=== PATIENT | male | born 1960 | race Two or more races ===

== ENCOUNTER 2019-04-29 00:20 | Inpatient (IN) | payer MEDICAID, OTHER ==
[~2019-04-29] VITALS: Ht 193 cm; Wt 108.0 kg
[2019-04-29 01:39] LABS: Basophils # (auto) 0 uL; Basophils % (auto) 0.5 % (0.0-2.0); Eosinophils # (auto) 0.1 uL; Eosinophils % (auto) 0.7 % (0.0-7.0); Hematocrit 44.4 % (41.0-53.0); Hemoglobin 15.3 g/dL (13.5-17.5); Lymphocytes % (auto) 24.1 % (10.0-50.0); Mean Corpuscular Hemoglobin 32.2 pg (28.0-32.0); Mean Corpuscular Hgb Conc. 34.5 g/dL (32.0-36.0); Mean Corpuscular Volume 93.3 fL (80.0-100.0); Monocytes # (auto) 0.5 uL; Monocytes % (auto) 5.7 % (0.0-12.0); Neutrophils # (auto) 5.7 uL; Platelet Count (auto) 191 10^3/uL (140-450); Red Blood Cells 4.76 10^6/uL (4.5-5.90); Red Cell Distribution Width 14.2 % (11.8-14.3); White Blood Cell 8.3 10^3/uL (4.4-10.8)
[2019-04-29 01:56] LABS: Potassium 3.8 mmol/L (3.5-5.1)
[2019-04-29 02:01] LABS: Albumin 4.1 g/dL (3.4-5.0); BUN/Creatinine Ratio 14.5; Calcium 8.8 mg/dL (8.5-10.1)
[2019-04-29 02:05] LABS: Bilirubin, Total 0.6 mg/dL (0.2-1.0); Total Protein 7.6 g/dL (6.4-8.2)
[2019-04-29] MEDS ORDERED: SODIUM CHLORIDE 0.9% 500 ML IV ONE (02:19)
[2019-04-29] MEDS ORDERED: MORPHINE SULF INJ 2 MG/ML SYRINGE 1ML IV ONE (02:30)
[2019-04-29] MEDS ORDERED: ASPirin 325 MG TAB PO ONE (02:30)
[2019-04-29] MEDS ORDERED: MORPHINE SULF INJ 2 MG/ML SYRINGE 1ML IV PRN ×2 (04:45→13:30)
[2019-04-29] MEDS ORDERED: NITROGLYCERIN 0.4 MG SL TAB SL PRN ×2 (04:45→13:30)
[2019-04-29] MEDS ORDERED: ONDANSETRON HCL 4 MG/2 ML VIAL IV PRN (04:45)
[2019-04-29] MEDS ORDERED: TEMAZEPAM 15 MG CAP PO PRN (04:45)
[2019-04-29] MEDS ORDERED: ATORVASTATIN 20 MG TAB PO ONE (05:00)
[2019-04-29] MEDS ORDERED: ENOXAPARIN SOD 100 MG/1 ML SYRINGE SC ONE (05:00)
[2019-04-29] MEDS: SODIUM CHLORIDE 0.9% 1,000 ML IV SCH ×2 (05:18→16:40)
[2019-04-29] MEDS ORDERED: SIMV-8 PO (09:25)
[2019-04-29] MEDS ORDERED: CLOP75TA28 PO (09:25)
[2019-04-29] MEDS ORDERED: NITR0.4S29 SL (09:25)
[2019-04-29] MEDS ORDERED: ASPI81TA27 PO (09:25)
[2019-04-29] MEDS: FAMOTIDINE 20 MG TAB PO SCH ×2 (10:12→21:29)
[2019-04-29] MEDS: CLOPIDOGREL BISULFATE 75 MG TAB PO SCH (10:12)
[2019-04-29 11:21] LABS: INR 1.04 (0.9-1.15); Partial Thromboplastin Time 33.4 sec (23.64-32.05)
[2019-04-29] MEDS ORDERED: LIDOCAINE 2%HCL (LOCAL ANESTH.) INJ 20ML MDV ONE ×2 (11:36→12:10)
[2019-04-29] MEDS ORDERED: fentaNYL CITRATE 100 MCG/2 ML VL ONE (11:48)
[2019-04-29] MEDS ORDERED: ANGIOMAX 250 MG VIAL IV ONE (11:48)
[2019-04-29] MEDS ORDERED: MIDAZOLAM HCL 1MG/1ML-2 ML VIAL ONE (11:49)
[2019-04-29] MEDS ORDERED: SODIUM CHL 0.9% 50 ML ONE (11:49)
[2019-04-29] MEDS ORDERED: IOHEXOL 350 MG/ML 100ML IJ ONE ×2 (11:52→12:23)
[2019-04-29] MEDS ORDERED: EPINEPHrine HCL 1 MG/10 ML SYRG ONE (12:27)
[2019-04-29] MEDS ORDERED: ATROPINE SULFATE 1 MG/1 ML VIAL ONE (12:27)
[2019-04-29] MEDS ORDERED: CLOPIDOGREL 300 MG TAB ONE (12:44)
[2019-04-29] MEDS ORDERED: hydrALAZINE HCL 20 MG/ML VL IV PRN (13:30)
[2019-04-29] MEDS ORDERED: CLOPIDOGREL BISULFATE 75 MG TAB PO ONE (13:45)
[2019-04-29] MEDS ORDERED: OMEPRAZOLE 20MG/10ML ORAL SUSP PO SCH (13:45)
--- NOTE | 2019-04-29 14:56 | NUR ---
faxed ss order to [facility] for f/u as outpt, confirmation received
[2019-04-29] MEDS ORDERED: KETOROLAC TROMETH 30 MG/ML 1ML VIAL ONE (16:11)
[2019-04-29] MEDS ORDERED: KETOROLAC TROMETH 30 MG/ML 1ML VIAL IV ONE (16:15)
--- NOTE | 2019-04-29 16:22 | NUR ---
report to Monica LAWTON. no change in patients assessment. c/p 04/09 dr. Batres aware. Toradol given patient tolerated well. ok to bring patient to tele per dr. Batres. site to right groin benign safe guard in place. no bleeding to site RN verbally informed patient can sit up at 1700.
--- NOTE | 2019-04-29 16:39 | NUR ---
site checked with Monica LAWTON site benign no change in assessment.
--- NOTE | 2019-04-29 16:40 | NUR ---
PATIENT BROUGHT TO THE FLOOR REPORT RECEIVED. SAFEGUARD TO RIGHT GROIN, PER [employer]ELOPER NURSE, DEFLATE AT 1700. WILL CONTINUE CARE.
[2019-04-29 16:54] VITALS: BP 148/92
--- NOTE | 2019-04-29 17:00 | NUR ---
SAFEGUARD DEFLATED, DRESSING CHANGE. AREA SOFT TO PALPATION, NO BLEEDING. DRESSING CLEAN, DRY, AND INTACT. PATIENT TOLERATED WELL, NO S/S OF DISTRESS.
--- NOTE | 2019-04-29 19:00 | NUR ---
CHEST PAIN 03/10/ PAGED PATIENT STATES CHEST PAIN IS THE SAME SINCE ADMISSION. PATIENT STATES PREVIOUS MORPHINE AND TORADOL DID NOT HELP. EKG DONE AND PLACED IN CHART. MD MI PAGED.
--- NOTE | 2019-04-29 19:13 | NUR ---
Opening Shift Note Assumed care of patient, awake and alert. No S/S of distress/SOB. Pt states he is having some chest pain /10. Instructed on POC and to call for assist as needed. Pt is currently laying in bed with the rails up x2. The bed is locked in the lowest position and the call light is within reach. The dressing on the right groin is clean dry and intact. Will continue to monitor.
--- NOTE | 2019-04-29 19:27 | NUR ---
CLOSING NOTE ENDORSED CARE TO PHYSIOGNOMIST RN. RN AWARE OF PATIENT CHEST PAIN AND PAGE OUT TO MD MI. PATIENT STATES CHEST PAIN 4/10, NO OTHER S/S OF DISTRESS. ENDORSED CHEST PAIN CARE TO PHYSIOGNOMIST RN.
--- NOTE | 2019-04-29 20:00 | NUR ---
No return call from Dr Batres. paged again.
[2019-04-29 22:00] VITALS: BP 117/66
[2019-04-29] MEDS ORDERED: PNEUMOCOCCAL VACC POLYS 25 MCG/0.5 ML VIAL IM ONE (22:00)
[2019-04-29] MEDS ORDERED: ATORVASTATIN 20 MG TAB PO SCH (22:00)
--- NOTE | 2019-04-29 22:00 | NUR ---
Called Dr Baires regarding chest pain. Pt states CP now 01/10. EKG taken and placed in chart. VS- 132/72, 65, 95%, 16, 97.5F. Morphine did not relive pain. MD states to give the nitro and see if that works while continuing to page for cardiology.
--- NOTE | 2019-04-29 22:30 | NUR ---
Pt states that he no is longer feeling the chest pain and that he does not want the nitro. Told pt to let staff know if chest pain returns. Verbalized understanding. Pt currently shows no signs of any distress or pain.
[2019-04-30 05:00] VITALS: BP 118/60
[2019-04-30 06:02] LABS: Basophils # (auto) 0 uL; Basophils % (auto) 0.3 % (0.0-2.0); Eosinophils # (auto) 0 uL; Eosinophils % (auto) 0.7 % (0.0-7.0); Hematocrit 42.7 % (41.0-53.0); Hemoglobin 14.6 g/dL (13.5-17.5); Lymphocytes # (auto) 1.1 uL; Lymphocytes % (auto) 18.7 % (10.0-50.0); Mean Corpuscular Hemoglobin 31.9 pg (28.0-32.0); Mean Corpuscular Hgb Conc. 34.3 g/dL (32.0-36.0); Mean Corpuscular Volume 93.1 fL (80.0-100.0); Monocytes # (auto) 0.5 uL; Monocytes % (auto) 8.5 % (0.0-12.0); Neutrophils # (auto) 4.1 uL; Neutrophils % (auto) 71.8 % (37.0-80.0); Platelet Count (auto) 163 10^3/uL (140-450); Red Blood Cells 4.59 10^6/uL (4.5-5.90); White Blood Cell 5.8 10^3/uL (4.4-10.8)
[2019-04-30 06:18] LABS: Calcium 8.2 mg/dL (8.5-10.1); Potassium 3.5 mmol/L (3.5-5.1)
[2019-04-30 06:22] LABS: BUN/Creatinine Ratio 11.5
[2019-04-30] MEDS: SODIUM CHLORIDE 0.9% 1,000 ML IV SCH (07:00)
[2019-04-30 08:00] VITALS: BP 120/70
[2019-04-30] MEDS: FAMOTIDINE 20 MG TAB PO SCH (09:12)
[2019-04-30] MEDS: CLOPIDOGREL BISULFATE 75 MG TAB PO SCH (09:13)
[2019-04-30] MEDS ORDERED: PANTOPRAZOLE 40 MG/10 ML VIAL INJ IV SCH (10:00)
--- NOTE | 2019-04-30 10:00 | NUR ---
CARDIOLOGY FOLLOW UP PATIENT STATES HE HAS APPOINTMENT WITH CARDIOLOGY THROUGH HIS PRIMARY MD REFERRAL. PATIENT ADVISED TO KEEP HIS CARDIOLOGY APPOINTMENT ON 05/10/19. PATIENT VERBALIZED UNDERSTANDING.
[2019-04-30 11:00] VITALS: BP 120/70
== END 2019-04-30 12:30 | disposition home or self-care (01) | DRG 247 ==
LOC: ER 00:23 → TELE 04:49 → TELE-WESTW 16:40
PROVIDERS: ADMIT Nurse Practitioner; ATTEND Internal Medicine
PROC: 027034Z Dilation of Coronary Artery, One Artery with Drug-eluting Intraluminal Device, Percutaneous Approach (ICD-10-PCS; principal; 2019-04-29)
PROC: 4A023N7 Measurement of Cardiac Sampling and Pressure, Left Heart, Percutaneous Approach (ICD-10-PCS; 2019-04-29)
PROC: B2111ZZ Fluoroscopy of Multiple Coronary Arteries using Low Osmolar Contrast (ICD-10-PCS; 2019-04-29)
PROC: B2151ZZ Fluoroscopy of Left Heart using Low Osmolar Contrast (ICD-10-PCS; 2019-04-29)
PROC: B240ZZ3 Ultrasonography of Single Coronary Artery, Intravascular (ICD-10-PCS; 2019-04-29)
DX: I21.4 Non-ST elevation (NSTEMI) myocardial infarction (principal); I10 Essential (primary) hypertension; E78.5 Hyperlipidemia, unspecified; R00.1 Bradycardia, unspecified; M54.9 Dorsalgia, unspecified; M54.2 Cervicalgia; I25.10 Atherosclerotic heart disease of native coronary artery without angina pectoris; I25.2 Old myocardial infarction; Z82.49 Family history of ischemic heart disease and other diseases of the circulatory system; Z90.49 Acquired absence of other specified parts of digestive tract
CPT/HCPCS: 36415; 71045; 80048; 80053; 82565; 83880; 84484; 85025; 85610; 85730; 93005; 94761; 96372; 96374; 96375; 96376; C1887; G0378; J0461; J1885; J2250; J2405

== ENCOUNTER → 2019-05-28 | Outpatient (CLI) | payer OTHER ==
[~2019-05-28] VITALS: Ht 193 cm; Wt 99.8 kg
[~2019-05-28] MED LIST: ASPI81TA27 PO; CLOP75TA28 PO; NITR0.4S29 SL
== END | disposition home or self-care (01) ==
LOC: Rad HDHVI 07:54
PROVIDERS: ATTEND Internal Medicine
DX: I25.2 Old myocardial infarction (principal)
CPT/HCPCS: 78452; 93017; 96374; A9500

== ENCOUNTER → 2020-06-27 | Emergency (ER) | payer OTHER ==
[~2020-06-27] VITALS: Ht 193 cm; Wt 108.0 kg
[~2020-06-27] MED LIST changes: +ASPI-543 PO; -ASPI81TA27 PO
[2020-06-27 04:06] VITALS: BP 151/88
== END | disposition home or self-care (01) ==
LOC: ER 03:34
DX: R33.9 Retention of urine, unspecified (principal); I10 Essential (primary) hypertension; I25.10 Atherosclerotic heart disease of native coronary artery without angina pectoris; I25.2 Old myocardial infarction; Z90.49 Acquired absence of other specified parts of digestive tract
CPT/HCPCS: 51702

== ENCOUNTER 2021-12-18 23:21 | Emergency (ER) | payer OTHER ==
[~2021-12-18] VITALS: Ht 193 cm; Wt 108.0 kg
[2021-12-19 01:37] LABS: Basophils # (auto) 0 10 ^3/uL (0-0.2); Basophils % (auto) 0.5 % (0.0-2.0); Eosinophils # (auto) 0.1 10 ^3/uL (0-0.8); Eosinophils % (auto) 1.5 % (0.0-7.0); Hematocrit 41.4 % (41.0-53.0); Hemoglobin 14.3 g/dL (13.5-17.5); Lymphocytes # (auto) 2.6 10 ^3/uL (0.4-5.4); Mean Corpuscular Hemoglobin 31.4 pg (28.0-32.0); Mean Corpuscular Hgb Conc. 34.5 g/dL (32.0-36.0); Mean Corpuscular Volume 91.2 fL (80.0-100.0); Monocytes # (auto) 0.5 10 ^3/uL (0-1.3); Monocytes % (auto) 7.7 % (0.0-12.0); Neutrophils # (auto) 3.3 10 ^3/uL (1.6-8.6); Neutrophils % (auto) 50.3 % (37.0-80.0); Red Blood Cells 4.54 10^6/uL (4.5-5.90); Red Cell Distribution Width 13.9 % (11.8-14.3); White Blood Cell 6.6 10^3/uL (4.4-10.8)
[2021-12-19 02:02] LABS: Urine Bacteria NONE SEEN /hpf (None Seen); Urine Blood Negative /uL (Negative); Urine Mucus FEW (None Seen); Urine Specific Gravity 1.037 (1.001-1.035); Urine WBC 2 /hpf (0 - 3)
[2021-12-19 02:31] LABS: Albumin 3.9 g/dL (3.4-5.0); Calcium 8.7 mg/dL (8.5-10.1); Potassium 3.8 mmol/L (3.5-5.1)
[2021-12-19 02:37] LABS: BUN/Creatinine Ratio 17.6; Bilirubin, Total 0.6 mg/dL (0.2-1.0); Total Protein 7.5 g/dL (6.4-8.2)
[2021-12-19 04:45] VITALS: BP 139/79
== END 2021-12-19 04:50 | disposition home or self-care (01) ==
LOC: ER 23:21
DX: R07.89 Other chest pain (principal); I10 Essential (primary) hypertension; I25.2 Old myocardial infarction; Z86.73 Personal history of transient ischemic attack (TIA), and cerebral infarction without residual deficits; Z90.89 Acquired absence of other organs
CPT/HCPCS: 36415; 71045; 80053; 81001; 84484; 85025; 87426; 93005